=== PATIENT | male | born 1960 | race Caucasian/White ===

== ENCOUNTER → 2017-04-21 | Outpatient (CLI) | payer BC | END | disposition home or self-care (01) | LOC: GMAB 14:50 | PROVIDERS: ATTEND Family Medicine | DX: Z00.01 Encounter for general adult medical examination with abnormal findings (principal) ==

== ENCOUNTER → 2017-05-26 | Outpatient (CLI) | payer BC | END | disposition home or self-care (01) | LOC: GMAB 16:41 | PROVIDERS: ATTEND Family Medicine | DX: R94.5 Abnormal results of liver function studies (principal) ==

== ENCOUNTER → 2017-07-06 | Outpatient (CLI) | payer BC | END | disposition home or self-care (01) | LOC: GMAB 12:06 | PROVIDERS: ATTEND Family Medicine | DX: R79.9 Abnormal finding of blood chemistry, unspecified (principal) ==

== ENCOUNTER → 2017-07-06 | Outpatient (CLI) | payer BC, OTHER ==
--- NOTE | 2017-07-06 17:09 | US ---
EXAM DESCRIPTION: Liver CLINICAL HISTORY: 57 years Male, ABNORMAL RESULTS OF LIVER FUNCTION STUDIES COMPARISON: CT abdomen and pelvis 07/29/2011. TECHNIQUE: Standard transabdominal scanning. Two-dimensional and Doppler modes. FINDINGS: Normal ultrasound of the gallbladder with no stones or sludge. No wall thickening or pericholecystic fluid. Nontender. Normal caliber of the common bile duct. Increased echogenicity of the liver with smooth capsule were seen. Normal intrahepatic ducts. Craniocaudal dimension of the right lobe is 18.2 cm. Pancreas is unremarkable. Ultrasound of the right kidney is negative. IMPRESSION: 1. Mildly enlarged liver with increased echogenicity which could represent steatosis. This can be a result of obesity or a variety of metabolic and toxic conditions. No ascites. 2. Normal ultrasound of the gallbladder, pancreas, and right kidney. Nontender during scanning. Normal caliber of the common bile duct. Electronically signed by: Óscar Miller MD 07/06/2017 5:08 PM [employer]
== END | disposition home or self-care (01) ==
LOC: US 08:54
PROVIDERS: ATTEND Family Medicine
DX: R94.5 Abnormal results of liver function studies (principal)

== ENCOUNTER → 2018-07-11 | Outpatient (CLI) | payer BC, OTHER ==
--- NOTE | 2018-07-11 10:51 | US ---
US THYROID CLINICAL STATEMENT: NODULE. No palpable mass, no prior thyroid surgery or therapy. COMPARISON: None FINDINGS: Size right thyroid lobe: 3.7 x 1.5 x 1.4 cm Size left thyroid lobe: 3.8 x 1.8 x 1.5 cm Size isthmus: 0.3 cm Estimated total number of nodules greater than or equal to 1 cm: 1. Located in the left lobe. Heterogeneous echoes in the right lobe and isthmus. Nodule 1: Size: 1.7 x 1.3 x 1.1 cm Location: Left Mid Composition: solid or almost completely solid: 2 points. Heterogeneous. Echogenicity: hypoechoic: 2 points Shape: wider than tall: 0 points Margins: smooth: 0 points hypoechoic rim. Echogenic foci: none: 0 points. ACR Total Points: 4; ACR TI-RADS risk category: TR4 - moderately suspicious nodule. Nodule 2: Size: 0.7 x 0.7 x 0.5 cm Location: Left Lower Composition: solid or almost completely solid: 2 points Echogenicity: hypoechoic: 2 points Shape: wider than tall: 0 points Margins: smooth: 0 points Echogenic foci: none: 0 points ACR Total Points: 4; ACR TI-RADS risk category: TR4 - moderately suspicious nodule. In the soft tissue around the thyroid gland, no dominant solid mass or distinct cyst. No parenchymal edema or large calcifications. No overlying skin changes. Normal vascularity. IMPRESSION: 1. Nodule 1: ACR TI-RADS 2017 Category TR4. Recommend: Ultrasound-guided fine needle aspiration. Recommendations based upon [employer] Best Practice recommendations and ACR TI-RADS 2017 guidelines. Please see below*. 2. Nodule 2: ACR TI-RADS 2017 Category TR4. Recommend: No further follow-up. 3. Soft tissue around the thyroid gland unremarkable. *ACR TI-RADS 2017 Recommendations: TR1: No FNA or follow up TR2: No FNA or follow up TR3: FNA if >/= 2.5 cm, follow up if 1.5 - 2.4 cm in 1, 3, and 5 years TR4: FNA if >/= 1.5 cm, follow up if 1.0 - 1.4 cm in 1, 2, 3, and 5 years TR5: FNA if >/= 1.0 cm, follow up if 0.5 - 0.9 cm every year for 5 years ACR TI-RADS recommends that no more than two nodules with the highest ACR TI-RADS total point should be biopsied and no more than four nodules should be followed. Electronically signed by: Óscar Miller MD 07/11/2018 10:50 AM [facility]
== END ==
LOC: US 08:53
PROVIDERS: ATTEND Family Medicine
DX: E04.1 Nontoxic single thyroid nodule (principal)

== ENCOUNTER → 2018-08-15 | Outpatient (CLI) | payer SELFPAY ==
--- NOTE | 2018-08-15 20:17 | US ---
Thyroid Biopsy, Image-Guided: Ultrasound CLINICAL INFORMATION: Solid enlarged nodule left lobe. No palpable mass. No prior thyroid surgery or therapy. TECHNIQUE: Procedure was explained to the patient with risks and benefits. The patient gave verbal and written consent. Sterile preparation draping. 1% xylocaine dermal anesthetic 9-1 mixture with sodium bicarbonate. Sterile ultrasound guidance. A total of 6 passes left thyroid solid nodule; 3 needle samplings with a separate 1.5 inch, 25-gauge needle per sample, and 3 aspirations, with a separate 1.5 inch, 25-gauge needle/10-cc syringe set, per aspiration. Each sample was placed on a separate slide and fixed in 95% alcohol container. Saccomanno fluid drawn into aspirate needle and rinse injected into Saccomanno container. Specimens to be sent for pathologic examination at remote facility. . Patient tolerated procedure well. Biopsy #:1 Nodule reference number based on prior diagnostic ultrasound:1 Maximum size: 1.7 cm Location: left; mid ACR TI-RADS risk category: TR4 (4-6 points) Reason for biopsy: meets ACR TI-RADS criteria Complications: None. IMPRESSION: Successful ultrasound guided fine needle aspiration of left thyroid nodule. ACR TI-RADS Risk Category TR 4 Electronically signed by: Óscar Miller MD 08/15/2018 8:14 PM [employer]ODUCTION TECHNOLOGIST
== END ==
LOC: US 09:56
PROVIDERS: ATTEND Family Medicine
DX: E04.1 Nontoxic single thyroid nodule (principal)

== ENCOUNTER → 2018-09-08 | Outpatient (CLI) | payer OTHER | LOC: GMAE 17:09 | PROVIDERS: ATTEND Family Medicine | DX: E55.9 Vitamin D deficiency, unspecified (principal) ==